=== PATIENT | female | born 1950 | race Caucasian/White ===

== ENCOUNTER 2018-09-24 17:10 | Emergency (ER) | payer OTHER ==
[~2018-09-24] VITALS: Ht 170.2 cm; Wt 90.7 kg
[2018-09-24 17:36] VITALS: Ht 170.2 cm; Wt 90.7 kg
[2018-09-24 19:21] LABS: BASOPHIL % 0.5 % (0-2); PLATELET COUNT 265 x10^3mcL (130-400)
[2018-09-24 19:23] LABS: RED CELL DISTRIBUTION WIDTH 16.3 % (11.5-14.5)
[2018-09-24 19:39] LABS: microscopic required? YES; urine erythrocyte 2+ (NEGATIVE)
[2018-09-24 19:40] LABS: CALCIUM 8.8 mg/dL (8.5-10.1); CARBON DIOXIDE 28.8 mmol/L (21-32); CREATININE SERUM 1.1 mg/dL (0.6-1.0); POTASSIUM SERUM 3.6 mmol/L (3.5-5.1)
[2018-09-24 19:42] LABS: ALBUMIN 3.6 g/dL (3.4-5.0); BILIRUBIN TOTAL 0.4 mg/dL (0.20-1.00); TOTAL PROTEIN, SERUM 7.6 g/dL (6.4-8.2)
[2018-09-24 21:30] VITALS: BP 146/69
== END 2018-09-24 21:30 | disposition home or self-care (01) ==
LOC: ED 17:10
PROVIDERS: Emergency Medicine
DX: M54.9 Dorsalgia, unspecified (principal); G62.9 Polyneuropathy, unspecified; M25.451 Effusion, right hip; F17.200 Nicotine dependence, unspecified, uncomplicated; E78.00 Pure hypercholesterolemia, unspecified; Z98.890 Other specified postprocedural states; Z88.8 Allergy status to other drugs, medicaments and biological substances
CPT/HCPCS: J2270; J2405